=== PATIENT | male | born 1985 | race Caucasian/White ===

== ENCOUNTER 2020-03-13 14:47 | Emergency (ER) | payer SELFPAY ==
[~2020-03-13] VITALS: Ht 185.4 cm; Wt 94.2 kg
[~2020-03-13 14:47] MED LIST: [UNRECOGNIZED DRUG - OTHER]; [UNRECOGNIZED DRUG - OTHER]
--- NOTE | 2020-03-13 15:44 | PHYS DOC ---
Past History Past Medical History: Other Additional Past Medical Histor: TBI Past Surgical History: Other Additional Past Surgical Histo: CYST REMOVED RIGHT BREAST Smoking: Cigarettes Alcohol Use: Occasionally Drug Use: None General Adult EDM: Chief Complaint: MECHANICAL FALL HPI: HPI: Patient is a 35-year-old male who presents with left-sided elbow, forearm, wrist pain after a fall last night. Patient's reports he was taking in his trash can when he slipped and fell on the ice. Patient also reports pain to his left ribs. No bruising on his chest noted. Patient denies hitting head or losing loss of consciousness. Patient reports taking ibuprofen last night with little relief of pain. Review of Systems: Review of Systems: Constitutional: Denies fever or chills Eyes: Denies change in visual acuity HENT: Denies nasal congestion or sore throat Respiratory: Denies cough or shortness of breath Cardiovascular: Denies chest pain or edema GI: Denies abdominal pain, nausea, vomiting, bloody stools or diarrhea : Denies dysuria Musculoskeletal: Reports pain to left forearm and wrist. Integument: Denies rash Neurologic: Denies headache, focal weakness or sensory changes Endocrine: Denies polyuria or polydipsia Lymphatic: Denies swollen glands Psychiatric: Denies depression or anxiety Allergies: Allergies: Allergies Coded Allergies Type Severity Reaction Last Updated Verified Sulfa (Sulfonamide Antibiotics) Allergy Intermediate Hives 06/10/14 Yes Physical Exam: PE: Constitutional: Well developed, well nourished, no acute distress, non-toxic appearance. [] HENT: Normocephalic, atraumatic, bilateral external ears normal, oropharynx moist, no oral exudates, nose normal. [] Eyes: PERRLA, EOMI, conjunctiva normal, no discharge. [] Neck: Normal range of motion, no tenderness, supple, no stridor. [] Cardiovascular:Heart rate regular rhythm, no murmur [] Lungs & Thorax: Bilateral breath sounds clear to auscultation [] Abdomen: Bowel sounds normal, soft, tenderness to left side of abdomen, no masses, no pulsatile masses. [] Skin: Warm, dry, no erythema, no rash. [] Back: No tenderness, no CVA tenderness. [] Extremities: tenderness to left arm and wrist, no cyanosis, no clubbing, ROM intact, no edema. [] Neurologic: Alert and oriented X 3, normal motor function, normal sensory functi on, no focal deficits noted. [] Psychologic: Affect normal, judgement normal, mood normal. [] Current Patient Data: Vital Signs: Vital Signs Date Time Temp Pulse Resp B/P (MAP) Pulse Ox O2 Delivery O2 Flow Rate FiO2 03/13/20 14:58 98.0 62 20 123/73 (90) 100 Room Air EKG: EKG: [] Radiology/Procedures: Radiology/Procedures: []EXAM: 3 views of the left elbow DATE: 03/13/2020 3:52 PM INDICATION: Reason: ELBOW PAIN, LEFT. FALL / Spl. Instructions: / History: COMPARISON: No Prior FINDINGS: No elbow joint effusion. No acute fracture or dislocation. No significant soft tissue swelling. IMPRESSION: No acute fracture or dislocation. EXAM: AP and lateral views left forearm DATE: 03/13/2020 3:52 PM INDICATION: Left forearm pain, fall COMPARISON: No Prior FINDINGS: No evidence of acute fracture or dislocation. Soft tissue swelling about the distal left forearm. IMPRESSION: No evidence of acute fracture or dislocation. Mild soft tissue swelling about the left distal forearm. EXAM: 3 views of the left wrist DATE: 03/13/2020 3:52 PM INDICATION: Left wrist pain, fall/ Spl. Instructions: / History: COMPARISON: No Prior FINDINGS: No acute fracture or dislocation. Joint spaces are preserved without significant degenerative/proliferative change. No significant soft tissue swelling. IMPRESSION: No acute fracture or dislocation. Electronically signed by: Iglesia Monae MD (03/13/2020 4:13 PM) [id number] DICTATED AND SIGNED BY: IGLESIA MONAE MD DATE: 03/13/20 1612 CC: EMERGENCY,DEPARTMENT; ASUNCION REZA APRN; PCP,NO ~MTH0 0 Multiple views of the left ribs as well as AP view of the chest were obtained. History: Reason: ELBOW PAIN, LEFT. FALL / Spl. Instructions: / History: Comparison: none There is no fracture displaced rib fracture or acute bony injury seen. No pneumothorax is seen. Impression: Negative exam of the left ribs and chest. Electronically signed by: Orlin London MD (03/13/2020 4:12 PM) [id number] EXAM: CT Abdomen with IV contrast CLINICAL HISTORY: LEFT UPPER ABDOMINAL PAIN, FALL, INJURY COMPARISON: none TECHNIQUE: Helical CT of the abdomen and pelvis was performed following the administration of IV contrast. Axial, coronal and sagittal reformatted images were generated. ---PQRS compliance statement - One or more of the following individualized dose reduction techniques were utilized for this study: 1. Automated exposure control 2. Adjustment of the mA and/or kV according to patient size 3. Use of iterative reconstruction technique--- FINDINGS: Lower chest: Linear opacities lower lobes and middle lobe likely scarring/atelectasis. Groundglass opacities lower lobes. Abdomen: Hepatic hypoattenuation, likely fatty liver. No focal liver lesion. Gallbladder is normal. No biliary ductal dilatation. Pancreas is unremarkable. Spleen is normal in appearance. Adrenal glands are unremarkable. Symmetric nephrograms. No focal renal lesion. No hydronephrosis. No hydroureter. Visualized small and large bowel are normal in caliber. Moderate colonic stool content is seen. Appendix is normal. No abdominal lymphadenopathy. Trace fat-containing periumbilical hernia. No abdominal ascites. No aggressive osseous lesion. Bones: Trace height loss of the T11 vertebral body. No definite fracture is seen. IMPRESSION: 1. Hepatic hypoattenuation, likely fatty liver. 2. Trace height loss of the T11 vertebral body may represent age-indeterminate compression fracture. 3. Bibasilar groundglass opacities may represent atelectasis or atypical infectious/inflammatory process. Heart Score: Risk Factors: Risk Factors: DM, Current or recent (<one month) smoker, HTN, HLP, family history of CAD, obesity. Risk Scores: Score 0 - 3: 2.5% MACE over next 6 weeks - Discharge Home Score 4 - 6: 20.3% MACE over next 6 weeks - Admit for Clinical Observation Score 7 - 10: 72.7% MACE over next 6 weeks - Early Invasive Strategies Course & Med Decision Making: Course & Med Decision Making Pertinent Labs and Imaging studies reviewed. (See chart for details) []Patient is a 35-year-old male who presents with left-sided elbow, forearm, wrist pain after a fall last night. Patient's reports he was taking in his trash can when he slipped and fell on the ice. Patient also reports pain to his left ribs. No bruising on his chest noted. Patient denies hitting head or losing loss of consciousness. Patient reports taking ibuprofen last night with little relief of pain. We will order left rib x-ray, left elbow, left wrist. Rib, left elbow and left wrist xray are all negative for fracture. Patient has guarding on left side, abdomen. Will order CT abdomen. Xray negative for fractures. CT abdomen negative for abnormalities. Will DC home. RICE. Tylenol, Ibuprofen. Dragon Disclaimer: Jozef Disclaimer: This electronic medical record was generated, in whole or in part, using a voice recognition dictation system. Departure Departure: Impression: Primary Impression: Fall Qualified Codes: W19.XXXA - Unspecified fall, initial encounter Disposition: 01 DC HOME SELF CARE/HOMELESS Condition: GOOD Referrals: PCP,SOFI (PCP) Patient Instructions: Fall Prevention and Home Safety, [id number], RICE - Routine Care for Injuries, [id number] Additional Instructions: EMERGENCY DEPARTMENT GENERAL DISCHARGE INSTRUCTIONS Thank you for coming to [facility] (ED) today and trusting us with you care. We trust that you had a positivie experience in our Emergency Department. If you wish to speak to the department management, you may call the director at [phone]. YOUR FOLLOW UP INSTRUCTIONS ARE FOLLOWS: 1. Do you have a private Doctor? If you do not have a private doctor, please ask for a resource list of physicians or clinics that may be able to assist you with follow up care. 2. The Emergency Physician has interpreted your x-rays. The X-Ray specialist will also review them. If there is a change in the findings, you will be notified in 48 hours when at all possible. 3. A lab test or culture has been done, your results will be reviewed and you will be notified if you need a change in treatment. ADDITIONAL INSTRUCTIONS AND INFORMATION: 1. Your care today has been supervised by a physician who is specially trained in emergency care. Many problems require more than one evaluation for a complete diagnosis and treatment. We recommend that you schedule your follow up appointment as recommended to ensure complete treatment of you illness or injury. If you are unable to obtain follow up care and continue to have a problem, or if your condition worsens, we recommend that you return to the ED. 2. We are not able to safely determine your condition over the phone nor are we able to give sound medical advice over the phone. For these safety reasons, if you call for medical advice we will ask you to come to the ED for further evaluation. 3. If you have any questions regarding these discharge instructions please call the ED at [phone]. SAFETY INFORMATION: In the interest of safety, wellness, and injury prevention; we encourage you to wear your sealbelt, if you smoke; quite smoking, and we encourage family to use a protective helmet for bicycling and other sporting events that present an increased risk for head injury. IF YOUR SYMPTOMS WORSEN OR NEW SYMPTOMS DEVELOP, OR YOU HAVE CONCERNS ABOUT YOUR CONDITION; OR IF YOUR CONDITION WORSENS WHILE YOU ARE WAITING FOR YOUR FOLLOW UP APPOINTMENT; EITHER CONTACT YOUR PRIMARY CARE DOCTOR, THE PHYSICIAN WHOSE NAME AND NUMBER YOU WERE GIVEN, OR RETURN TO THE ED IMMEDIATELY. ASUNCION REZA APRN Mar 13, 2020 15:44
--- NOTE | 2020-03-13 16:15 | RAD ---
Multiple views of the left ribs as well as AP view of the chest were obtained. History: Reason: ELBOW PAIN, LEFT. FALL / Spl. Instructions: / History: Comparison: none There is no fracture displaced rib fracture or acute bony injury seen. No pneumothorax is seen. Impression: Negative exam of the left ribs and chest. Electronically signed by: Orlin London MD (03/13/2020 4:12 PM) [id number]
--- NOTE | 2020-03-13 16:16 | RAD ---
EXAM: 3 views of the left elbow DATE: 03/13/2020 3:52 PM INDICATION: Reason: ELBOW PAIN, LEFT. FALL / Spl. Instructions: / History: COMPARISON: No Prior FINDINGS: No elbow joint effusion. No acute fracture or dislocation. No significant soft tissue swelling. IMPRESSION: No acute fracture or dislocation. EXAM: AP and lateral views left forearm DATE: 03/13/2020 3:52 PM INDICATION: Left forearm pain, fall COMPARISON: No Prior FINDINGS: No evidence of acute fracture or dislocation. Soft tissue swelling about the distal left forearm. IMPRESSION: No evidence of acute fracture or dislocation. Mild soft tissue swelling about the left distal forearm . EXAM: 3 views of the left wrist DATE: 03/13/2020 3:52 PM INDICATION: Left wrist pain, fall/ Spl. Instructions: / History: COMPARISON: No Prior FINDINGS: No acute fracture or dislocation. Joint spaces are preserved without significant degenerative/prolife rative change. No significant soft tissue swelling. IMPRESSION: No acute fracture or dislocation. Electronically signed by: Iglesia Monae MD (03/13/2020 4:13 PM) [id number]
[2020-03-13] MEDS ORDERED: IOHEXOL 300 MG/ML 75 ML VIAL. IV ONE (16:45)
--- NOTE | 2020-03-13 17:17 | RAD ---
EXAM: CT Abdomen with IV contrast CLINICAL HISTORY: LEFT UPPER ABDOMINAL PAIN, FALL, INJURY COMPARISON: none TECHNIQUE: Helical CT of the abdomen and pelvis was performed following the administration of IV cont rast. Axial, coronal and sagittal reformatted images were generated. ---PQRS compliance statement - One or more of the following individualized dose reduction techniques were utilized for this study: 1. Automated exposure control 2. Adjustment of the mA and/or kV according to patient size 3. Use of iterative reconstruction technique--- FINDINGS: Lower chest: Linear opacities lower lobes and middle lobe likely scarring/atelectasis. Groundglass op acities lower lobes. Abdomen: Hepatic hypoattenuation, likely fatty liver. No focal liver lesion. Gallbladder is normal. No biliary ductal dilatation. Pancreas is unremarkable. Spleen is normal in appearance. Adrenal glands are unre markable. Symmetric nephrograms. No focal renal lesion. No hydronephrosis. No hydroureter. Visualized small and large bowel are normal in caliber. Moderate colonic stool content is seen. Appen skyla is normal. No abdominal lymphadenopathy. Trace fat-containing periumbilical hernia. No abdominal ascites. No agg ressive osseous lesion. Bones: Trace height loss of the T11 vertebral body. No definite fracture is seen. IMPRESSION: 1. Hepatic hypoattenuation, likely fatty liver. 2. Trace height loss of the T11 vertebral body may represent age-indeterminate compression fracture. 3. Bibasilar groundglass opacities may represent atelectasis or atypical infectious/inflammatory pro cess. Electronically signed by: Iglesia Monae MD (03/13/2020 5:15 PM) [id number]
[2020-03-13 17:54] VITALS: BP 133/73
== END 2020-03-13 17:54 | disposition home or self-care (01) ==
LOC: ER 14:47
DX: M25.532 Pain in left wrist (principal); M25.522 Pain in left elbow; M79.632 Pain in left forearm; F17.210 Nicotine dependence, cigarettes, uncomplicated; Z87.820 Personal history of traumatic brain injury; Z88.2 Allergy status to sulfonamides; W00.0XXA Fall on same level due to ice and snow, initial encounter; Y93.89 Activity, other specified; Y92.89 Other specified places as the place of occurrence of the external cause; Y99.8 Other external cause status
CPT/HCPCS: 71101; 73080; 73090; 73110; 74160; 99285; Q9967

== ENCOUNTER 2020-10-17 18:58 | Emergency (ER) | payer SELFPAY ==
[~2020-10-17] VITALS: Ht 185.4 cm; Wt 95.1 kg
--- NOTE | 2020-10-17 19:41 | PHYS DOC ---
Past History Past Medical History: Other Additional Past Medical Histor: TBI Past Surgical History: Other Additional Past Surgical Histo: CYST REMOVED RIGHT BREAST Smoking: Cigarettes Alcohol Use: Occasionally Drug Use: None General Adult EDM: Chief Complaint: MULTIPLE COMPLAINTS HPI: HPI: 35-year-old male presents with cough, diarrhea, and body aches. He started having the symptoms yesterday. His diarrhea stopped about 4 hours ago. He has not had any vomiting. He has diffuse body aches and cramping. He has a mo quent cough without sputum. The patient took a home Covid test that was negative. He was tested for Covid a month ago and was positive but had no symptoms at that time. He was not vaccinated. Review of Systems: Review of Systems: Constitutional: Chills, fatigue, body aches. Eyes: Denies change in visual acuity HENT: Denies nasal congestion or sore throat Respiratory: Cough with Cardiovascular: Denies chest pain or edema GI: Denies abdominal pain, nausea, vomiting, bloody stools or diarrhea : Denies dysuria Musculoskeletal: Denies back pain or joint pain Integument: Denies rash Neurologic: Denies headache, focal weakness or sensory changes Endocrine: Denies polyuria or polydipsia Lymphatic: Denies swollen glands Psychiatric: Denies depression or anxiety Allergies: Allergies: Allergies Coded Allergies Type Severity Reaction Last Updated Verified Sulfa (Sulfonamide Antibiotics) Allergy Intermediate Hives 06/10/14 Yes Physical Exam: PE: Constitutional: Well developed, well nourished, no acute distress, non-toxic appearance. [] HENT: Normocephalic, atraumatic, bilateral external ears normal, oropharynx moist, no oral exudates, nose normal. [] Eyes: PERRLA, EOMI, conjunctiva normal, no discharge. [] Neck: Normal range of motion, no tenderness, supple, no stridor. [] Cardiovascular: Heart rate 82, regular rhythm, no murmur [] Lungs & Thorax: Bilateral breath sounds clear to auscultation [] Abdomen: Bowel sounds normal, soft, no tenderness, no masses, no pulsatile masses. [] Skin: Warm, dry, no erythema, no rash. [] Back: No tenderness, no CVA tenderness. [] Extremities: No tenderness, no cyanosis, no clubbing, ROM intact, no edema. [] Neurologic: Alert and oriented X 3, normal motor function, normal sensory function, no focal deficits noted. [] Psychologic: Affect normal, judgement normal, mood normal. [] EKG: EKG: [] Radiology/Procedures: Radiology/Procedures: [] Impressions: XR CHEST 1V History: Cough. Comparison: 03/13/2020 Technique: Portable AP radiograph of the chest. Findings: Adequate inflation. Minimal linear right lower lobe opacity. No pleural effusion or pneumothorax. Cardiac silhouette and pulmonary vasculature are normal. Osseous structures and soft tissues are unremarkable. Impression: 1. Minimal linear right lower lobe opacities likely atelectasis. Electronically signed by: Jose Caal MD (10/17/2020 8:50 PM) [facility] DICTATED AND SIGNED BY: JOSE CAAL MD DATE: 10/17/202040 CC: FLORINDA PICKARD DO; PCP,NO ~MTH0 0 Heart Score: C/O Chest Pain: No Risk Factors: Risk Factors: DM, Current or recent (<one month) smoker, HTN, HLP, family history of CAD, obesity. Risk Scores: Score 0 - 3: 2.5% MACE over next 6 weeks - Discharge Home Score 4 - 6: 20.3% MACE over next 6 weeks - Admit for Clinical Observation Score 7 - 10: 72.7% MACE over next 6 weeks - Early Invasive Strategies Course & Med Decision Making: Course & Med Decision Making Pertinent Labs and Imaging studies reviewed. (See chart for details) The patient's labs are unremarkable. Chest x-ray shows possible small atelectasis. No focal consolidations. EKG is unremarkable. The patient is likely to have COVID-19. The test is pending. He is stable for discharge at this time. [] Dragon Disclaimer: Dragon Disclaimer: This electronic medical record was generated, in whole or in part, using a voice recognition dictation system. Departure Departure: Impression: Primary Impression: Suspected 2019 novel coronavirus infection Disposition: HOME / SELF CARE / HOMELESS Condition: STABLE Referrals: PCP,SOFI (PCP) Patient Instructions: Viral Syndrome Additional Instructions: You have been tested for or diagnosed with COVID-19. It is an infection caused by a new type of coronavirus. COVID-19 will cause cold-like or mild flu symptoms in most. It can cause more severe symptoms like problems breathing in some. There is no treatment for COVID-19. The body will clear the infection over time. Self-care will help to ease discomfort. Steps to Take: Self-Care Rest as needed. Healthy habits may help you feel better. Steps include: Choose healthy foods including fruits and vegetables. Drink water throughout the day. Get plenty of sleep each night. If you smoke, try to quit. It may ease breathing. Avoid alcohol. Keep Others Healthy The virus can spread to others. Droplets are released every time you sneeze or cough. The droplets can get into the mouth, nose, or eyes of people near you and lead to infection. To lower the chances of spreading COVID-19 to others: Stay at home until your doctor has said it is safe to leave. If you tested positive this will mean staying isolated until both of the following are true: At least 7 days have passed since the start of illness. You are free of fever for at least 72 hours without the use of medicine. During this time: - Avoid public areas, events, or transportation. Do not return to work or school until your doctor has said it is safe to do so. - Call ahead if you need to go to a medical center. Let them know you may have COVID-19. It will help them guide you where to go. They may also ask you to wear a facemask when you come to the office. - If you call for emergency medical services, let them know you may have COVID- 19. While at home: - Try to avoid close contact with others. Stay about 6 feet away. - If possible, spend most of your time in a separate room from others. - Use a face mask if you will be in close contact with others such as sharing a room or vehicle. - Have someone wipe down common surfaces in the home. Use household utility system repairer every day on areas like doorknobs, counters, or sinks. - Cough or sneeze into a tissue. Throw the tissue away right after use. If a tissue is not available, cough or sneeze into your elbow. - Wash your hands often. Wash them after sneezing or coughing. Use soap and water and wash for at least 20 seconds. Alcohol based hand block cleaner can be used if soap and water is not available. - Do not prepare food for others. Avoid sharing personal items like forks, spoons, or toothbrushes. - Avoid close contact with pets while you are sick. There is no evidence of the virus passing to pets. This is a safety step until more is known about this virus. Isolation can be frustrating. Social interaction can help. Keep in touch with friends and family through phone and tech options. You can still interact with others in your home, just keep a safe distance of about 6 feet. Follow-up: Your doctors office will check in with you to see if there are any changes in your health. You may be asked to keep track of symptoms to share with them. They will also let you know when you are clear to be in public again. Problems to Look Out For: Contact your doctor if your recovery is not going as you expect. Get emergency care if you have problems such as: - Trouble breathing - Nonstop chest pain or pressure - Changes in awareness, confusion, or problems waking - Lips or face have bluish color - Worsening of symptoms If you think you have an emergency, call for emergency medical services right away. As taken from [facility] FLORINDA PICKARD DO Oct 17, 2020 19:40
[2020-10-17] MEDS ORDERED: IV NORMAL SALINE 1,000ML 1,000 ML IV ONE (19:45)
[2020-10-17] MEDS ORDERED: METOCLOPRAMIDE HCL 10 MG/2 ML VIAL. IVP ONE (19:45)
[2020-10-17] MEDS ORDERED: diphenhydrAMINE 50 MG/ML VIAL IVP ONE (19:45)
[2020-10-17] MEDS ORDERED: BENZONATATE 100 MG CAPSULE. PO ONE (19:45)
[2020-10-17 20:37] LABS: BASO # 0.1 x10^3/uL (0.0-0.2); BASO % 1 % (0-3); EOS # 0.6 x10^3/uL (0.0-0.7); EOS % 6 % (0-3); HEMATOCRIT 45.9 % (39.0-53.0); HEMOGLOBIN 16.3 g/dL (13.0-17.5); LYMPH # 2.7 x10^3/uL (1.0-4.8); LYMPH % 24 % (24-48); MEAN CORPUSCULAR HEMOGLOBIN 32 pg (25-35); MEAN CORPUSCULAR HGB CONC 36 g/dL (31-37); MEAN CORPUSCULAR VOLUME 91 fL (79-100); MONO # 0.6 x10^3/uL (0.0-1.1); MONO % 6 % (0-9); NEUT # 7.1 x10^3uL (1.8-7.7); NEUT % 64 % (31-73); PLATELET COUNT 277 x10^3/uL (140-400); RED BLOOD COUNT 5.06 x10^6/uL (4.30-5.70); RED CELL DISTRIBUTION WIDTH 12.5 % (11.5-14.5); WHITE BLOOD COUNT 11.2 x10^3/uL (4.0-11.0)
--- NOTE | 2020-10-17 20:53 | RAD ---
XR CHEST 1V History: Cough. Comparison: 03/13/2020 Technique: Portable AP radiograph of the chest. Findings: Adequate inflation. Minimal linear right lower lobe opacity. No pleural effusion or pneumothorax. Car diac silhouette and pulmonary vasculature are normal. Osseous structures and soft tissues are unremar kable. Impression: 1. Minimal linear right lower lobe opacities likely atelectasis. Electronically signed by: Jose Caal MD (10/17/2020 8:50 PM) [facility]
[2020-10-17 21:06] LABS: CALCIUM 8.8 mg/dL (8.5-10.1); CREATININE 0.7 mg/dL (0.7-1.3); GFR 126.9; POTASSIUM 3.9 mmol/L (3.5-5.1)
[2020-10-17 21:20] LABS: ALBUMIN 3.7 g/dL (3.4-5.0); ALBUMIN/GLOBULIN RATIO 1.2 (1.0-1.7); TOTAL BILIRUBIN 0.4 mg/dL (0.2-1.0); TOTAL PROTEIN 6.7 g/dL (6.4-8.2)
[2020-10-17 22:12] VITALS: BP 153/70
--- NOTE | 2020-10-18 01:07 | EKG ---
[address] [address] Test Date: 2020-10-17 Test Time: 21:23:45 Pat Name: TOREY ROBERTSON Department: Room: Gender: M Clerical Manager: : [id number] Requested By: FLORINDA PICKARD Order Number: [id number] Reading MD: Measurements Intervals [place] Rate: 73 P: 31 AR: 180 QRS: 2 QRSD: 88 T: 13 QT: 376 QTc: 418 Interpretive Statements SINUS RHYTHM OTHERWISE NORMAL ECG RI6.02 No previous ECG available for comparison
== END 2020-10-17 22:18 | disposition home or self-care (01) ==
LOC: ER 18:58
DX: R19.7 Diarrhea, unspecified (principal); R05 Cough; M79.10 Myalgia, unspecified site; F17.210 Nicotine dependence, cigarettes, uncomplicated; Z20.822 Contact with and (suspected) exposure to COVID-19; Z87.820 Personal history of traumatic brain injury; Z88.2 Allergy status to sulfonamides
CPT/HCPCS: 36415; 71045; 80053; 84484; 85025; 93005; 96361; 96374; 96375; 99285; C9803; J1200; J2765; J7030; U0003